=== PATIENT | male | born 1950 | race Caucasian/White ===

== ENCOUNTER 2017-08-03 01:19 | Emergency (ER) | payer MEDICARE, OTHER ==
[~2017-08-03] VITALS: Ht 175.3 cm; Wt 84.0 kg
--- NOTE | 2017-08-03 01:20 | ED.REPORT ---
HPI-Stroke / CVA Aug 03, 2017 ED Provider: Timbo Newman MD Pt is an otherwise healthy 67 year old male who presents to the ED via EMS for intermittent right facial droop after being found on the ground by his girlfriend at 00:00. He was last seen normal at 21:00 yesterday. EMS reports associated agitation and hostility, slurred speech, confusion, and altered mental status. Per pt's girlfriend, the pt has experienced similar symptoms previously that have been associated with alcohol ingestion. The pt has not been previously seen for his symptoms. His girlfriend reports that he has a PCP in [place]. HPI was difficult to obtain secondary to pt's condition. He was repeatedly swearing in the room. Nursing Notes Stated Complaint: CODE STROKE Chief Complaint: Facial droop Nursing Notes Reviewed: Yes Allergies: Coded Allergies: No Known Allergies (Unverified , 08/03/17) General Time Seen by Provider: 01:30 Chief Complaint Other (right facial droop) Right-sided Hx Obtained From: Patient, Other family... (Girlfriend), EMS Arrived By: Ambulance Time last known well 21:00 on 08/02/17 Sudden in Onset?: Yes Symptom Duration: Since onset Progression Since Onset: Resolved Severity: Current: No pain currently Severity: Maximum: No pain Recent Healthcare: No recent doctor visit, No recent hospitalization Similar Sx Previous: Yes Past Medical History Past Medical History Episodes of altered mental status, facial drooping, agitation, and slurred speech that have been associated with alcohol ingestion Past Surgical History Denies Smoking History Unknown if Ever Smoker Social History Alcohol Use: >5 per day Other Social History: Good social support Ambulatory Status Independent Review of Systems + facial drooping Neurologic: Reports: Slurred speech Psychiatric: Reports: Agitation, Change mental status, Confusion, Hostile Complete sys rev & neg: except as marked. Physical Exam Initial Vital Signs Vital Signs (First) Date Time Temp Pulse Resp B/P Pulse Ox O2 Delivery O2 Flow Rate FiO2 08/03/17 01:44 36.3 82 18 125/76 98 Room Air Initial VS: Reviewed Abdomen / GI: Soft, Non-tender Extremities: Vascular intact, Neuro intact Skin: Warm, Dry, No cyanosis General/Constitutional: Awake, Alert He was agitated and combative with frequent swearing, and he was not cooperative to physical exam questioning. Head / Eyes: Atraumatic, Normocephalic Neck: Atraumatic, Full range of motion Respiratory / Chest: Atraumatic, Breath sounds NL, Breath sounds = bilat Cardiovascular: Heart rate NL, Regular rhythm, Heart sounds NL Neurologic: CN II - XII intact Pt was uncooperative to NIH stroke scale assessment, but no global focal deficits were appreciated. Symmetric and no focal deficits. His speech was articulate and coherent, but he would not directly answer questions. Interpretation & Diagnostics Lab Results Interpretation Result Diagram: 08/03/17 0128 08/03/17 0128 Test 08/03/17 01:28 08/03/17 01:37 08/03/17 02:00 White Blood Count 9.8th/mm3 (3.8-10.1) Red Blood Count 4.38mil/mm3 (4.40-5.80) Hemoglobin 14.2g/dL (13.8-17.2) Hematocrit 42.5% (41.0-50.0) Mean Corpuscular Volume 97.0fL (81-100) Mean Corpuscular Hemoglobin 32.4pg (27.0-35.0) Mean Corpuscular Hemoglobin Concent 33.4% (32.0-37.0) Red Cell Distribution Width 13.9% (12.3-15.4) Platelet Count 157bil/L (150-400) Neutrophils (%) (Auto) 45.3% (40-74) Lymphocytes (%) (Auto) 35.7% (14-46) Monocytes (%) (Auto) 8.9% (4-12) Eosinophils (%) (Auto) 9.3% (0-5) Basophils (%) (Auto) 0.6% (0-3) Prothrombin Time 10.2sec (8.1-12.5) Prothromb Time International Ratio 0.95ratio Activated Partial Thromboplast Time 26.5sec (22.8-33.0) Sodium Level 137mEq/L (134-144) Potassium Level 3.8mEq/L (3.5-5.2) Chloride Level 96mEq/L (97-108) Carbon Dioxide Level 20mmol/L (18-29) Blood Urea Nitrogen 26mg/dL (8-27) Creatinine 0.66mg/dL (0.76-1.27) Estimat Glomerular Filtration Rate 128mL/min (>59) Glucose Level 93mg/dL (60-99) Calcium Level 10.0mg/dL (8.5-10.1) Total Bilirubin 0.4mg/dL (0.0-1.2) Aspartate Amino Transf (AST/SGOT) 30U/L (0-50) Alanine Aminotransferase (ALT/SGPT) 24U/L (0-44) Alkaline Phosphatase 55U/L (25-160) Troponin T 0.010ug/L (0.0-0.011) Total Protein 7.3g/dL (6.4-8.4) Albumin 4.3g/dL (3.4-5.0) Alcohols 442mg/dL (0-10) Ammonia 45ug/dL (18-53) Urine Color Yellow (YELLOW) Urine Appearance Clear (CLEAR,HAZY) Urine pH 6.0 (5.0-8.0) Urine Specific Freeman <1.005 (1.003-1.035) Urine Protein Negativemg/dL (NEG,TRACE) Urine Glucose (UA) Negativemg/dL (NEGATIVE) Urine Ketones Negativemg/dL (NEGATIVE) Urine Occult Blood Trace (NEGATIVE) Urine Nitrite Negative (NEGATIVE) Urine Bilirubin Negative (NEGATIVE) Urine Urobilinogen Normalmg/dL (NORMAL) Urine Leukocyte Esterase Negative (NEGATIVE) Urine RBC 0-2/hpf (0-2) Urine WBC 0-5/hpf (0-5) Urine Epithelial Cells Few/hpf (NONE-MOD) Urine Crystals None seen (NONE SEEN) Urine Bacteria Few/hpf (NONE-FEW) Urine Hyaline Casts None/lpf (NONE) Urine Granular Casts None seen (NONE SEEN) Urine Waxy Casts None seen (NONE SEEN) Urine Red Blood Cell Casts None seen (NONE SEEN) Urine White Blood Cell Casts None seen (NONE SEEN) Urine Mucus None seen (None Seen) Urine Trichomonas None seen (NONE SEEN) Urine Yeast None (NONE SEEN) Urinalysis Comment None Urine Culture Reflexed Not indicated ECG Interpretation ECG Interpretation: Sinus rhythm with a rate of 80 Prolonged WA interval RBBB Time: 02:02 Interpreted by: ED physician CT Head Interpretation CONCLUSION: Mild involutional changes. No acute intracranial hemorrhage or CT signs of acute large vssel distribution infarction. Transmitted to the ED at 01:35 by Oz Canchola M.D. Study: Head CT no contrast Interpretation / Wet Read by: Interpret - Radiologist, Discussed w radiologist Re-Eval/Medical Decision Med Decision/Clinical Course 67-year-old male who consented by paramedics as a code stroke. He drinks on a regular basis but alcohol was not felt by his girlfriend to be the basis of his problem tonight. He was found down in the kitchen last known well at 2100 hrs. last p.m. He was felt to have some intermittent left facial droop. He was intermittently drowsy and combative. Upon arrival here he was given a head CT scan which was negative. Laboratory evaluation revealed elevated alcohol at 440 but no other significant changes. He is currently sobering. He has significant other would like him to go into treatment but it is unclear whether he would be willing for that. His care is being turned over at change of shift to Dr. Hills for further evaluation and disposition when more sober. Source of Hx: Old records Re-Evaluation/Progress #1: Time of Eval: 02:11 Re-Evaluation/Progress Note: Pt rechecked. Pt is improved and less combative. He denies pain. Informed pt of CT scan results. Pt reports that he lives in [place]. All questions addressed. Re-Evaluation/Progress #2: Time of Eval: 02:30 Re-Evaluation/Progress Note: Pt rechecked. Informed pt's girlfriend of alcohol level results. She states that she had not seen the pt drink as frequently as his alcohol level suggests. All questions addressed. Counseled Regarding: Diagnosis, Lab results Patient Discharge & Departure Shift Change Sign-Out Patient Care Transferred: Yes Discussed Complaint(s): Yes Laboratory Evaluation: Lab evaluation discussed Imaging Studies: Imaging discussed Discharge Condition All VS Reviewed: Yes Condition: Stable Referrals: OTHER,PHYSICIAN Care Transferred to: Dr. Hills Care Transferred at: 06:05 Crit Care Except Billable Proc Time Spent: 75-104 minutes Services Performed: Patient management by me, Time spent at bedside, Reviewing test results, Reviewing imaging, Discussing patient care, Documentation in record, Time with fam/surrogate Critical Care Notes: Severely obtunded with suspicion for CVA, not proven. Found to have a critical alcohol level of 440. Scribe Attestation Portions of this note were transcribed by Rochelle Abdi. I, Dr. Newman personally performed the history, physical exam and medical decision-making; I reviewed and confirmed the accuracy of the information in the transcribed note. Signed by: Kwadwo Flores, 08/03/17. copies to: OTHER,PHYSICIAN Timbo Newman MD Aug 03, 2017 01:20 Rochelle Arreola Aug 03, 2017 02:20
[2017-08-03 01:38] LABS: BASOPHILS % (AUTO) 0.6 % (0-3); EOSINOPHILS % (AUTO) 9.3 % (0-5); MONOCYTES % (AUTO) 8.9 % (4-12); Mean Corpuscular Hemoglobin 32.4 pg (27.0-35.0); NEUTROPHILS % (AUTO) 45.3 % (40-74); Platelet Count 157 bil/L (150-400)
[2017-08-03 01:44] VITALS: BP 125/76; PULSE 82; RESP 18; O2SAT 98
[2017-08-03 01:55] LABS: INR 0.95 ratio
[2017-08-03 01:59] LABS: TROPONIN T 0.01 ug/L (0.0-0.011)
[2017-08-03 02:41] LABS: APPEARANCE,URINE CLEAR (CLEAR,HAZY); COLOR,URINE YELLOW (YELLOW); OCCULT BLOOD,URINE TRACE (NEGATIVE); UROBILINOGEN,URINE NORMAL (NORMAL)
[2017-08-03 05:59] VITALS: BP 128/72; PULSE 80; RESP 16; O2SAT 99
--- NOTE | 2017-08-03 08:09 | DRSVH ---
PROCEDURE: CT BRAIN TPA INDICATIONS: Stroke TECHNIQUE: Noncontrast 4.5 mm thick angled axial sections acquired from the foramen magnum to the vertex, with c oronal reformats. COMPARISON: None. FINDINGS: Image quality: Excellent. CSF spaces: Basal cisterns are patent. No extra-axial fluid collections. The ventricles are promin ent but symmetric in size and shape. Brain: No intracranial bleeds or masses. There is mild/moderate cerebral volume loss for age, with resultant ventricular and sulcal prominence. There are mild periventricular and deep white matter ch ronic small vessel ischemic changes. There is intracranial internal carotid artery atherosclerosis. Skull and face: Calvarium and visualized facial bones appear intact, without suspicious lesions. Sinuses: There is an air-fluid level in the left maxillary sinus. Mastoids sinuses are clear. IMPRESSION: 1. No acute intracranial abnormalities. If clinical symptoms persist or clinical suspicion for acute stroke is high, MRI is suggested for further evaluation. 2. Cerebral volume loss and chronic microvascular ischemic changes. 3. Left maxillary sinus disease. No significant discrepancy with the overnight cashier radiology preliminary report. This study fulfills neurological imaging criteria for inclusion or exclusion of acute stroke therapie s based on available published neurological guidelines. Dictated by: David Solano M.D. on 08/03/2017 at 8:05 Approved by: David Solano M.D. on 08/03/2017 at 8:07
--- NOTE | 2017-08-03 08:36 | NUR ---
Swallowing eval cancelled per MD.
[2017-08-03 09:45] VITALS: BP 103/67; RESP 15; O2SAT 99
--- NOTE | 2017-08-03 12:33 | NUR ---
Social Work: Brief Note EMR reviewed. GILDA received consult to meet with patient and significant other Catalina about patient's ETOH abuse. GILDA met with Catalina to obtain additional information about patient. Catalina states that she and patient have been living together for the past ten years. Catalina states that patient drinks alot every night. Catalina states that patient starts drinking at 2100 and doesn't stop until he falls asleep. Catalina was very tearful during conversation. Catalina states that she is "tired" and does not feel that she can "do this any longer". Catalina confirms that she does have support which includes close friends and siblings. Catlaina states that her family has been concerned but did not know what was going on. SW informed Catalina that she would speak with patient about available ETOH abuse resources. GILDA informed Catalina that if patient choses not to receive help that his decision would have to be respected by hospital staff. Catalina confirmed understanding. GILDA and met with patient. GILDA and MD discuss with patient the severity of his drinking and the resources that are available. SW provided patient with a list of chemical dependency detox and outpatient resources. SW also provided patient with a resource booklet entitled "Rethinking Drinking". Patient thanked GILDA for the information however, patient decided that he was not interested in pursuing treatment at this time. GILDA and updated Catalina on the conversation that was held with the patient. Discharge orders have been placed by . Patient will discharge home. JACQUELINE Noble
== END 2017-08-03 11:52 | disposition home or self-care (01) ==
LOC: EDBD 01:19 → SED 01:19
DX: F10.129 Alcohol abuse with intoxication, unspecified (principal)
CPT/HCPCS: 36415; 70450; 80053; 81000; 82140; 84484; 85025; 85610; 85730; 93005; 99285; G0480